=== PATIENT | male | born 1970 | race Two or more races ===

== ENCOUNTER 2020-05-28 16:44 | Inpatient (IN) | payer MEDICAID, OTHER ==
[~2020-05-28] VITALS: Ht 160 cm; Wt 73.5 kg
[2020-05-28] MEDS ORDERED: cefTRIAXone 1GM/50ML D5W 50 ML IV ONE (18:15)
[2020-05-28] MEDS ORDERED: metroNIDAZOLE 500MG/100ML 100 ML IV ONE (18:15)
[2020-05-28] MEDS ORDERED: cefTRIAXone SOD 1,000 MG VL ONE (18:37)
[2020-05-28 18:38] LABS: Basophils # (auto) 0 10 ^3/uL (0-0.2); Basophils % (auto) 0.2 % (0.0-2.0); Eosinophils # (auto) 0 10 ^3/uL (0-0.8); Eosinophils % (auto) 0.1 % (0.0-7.0); Hematocrit 48.8 % (41.0-53.0); Hemoglobin 16.3 g/dL (13.5-17.5); Lymphocytes # (auto) 0.6 10 ^3/uL (0.4-5.4); Lymphocytes % (auto) 6.6 % (10.0-50.0); Mean Corpuscular Hemoglobin 30.3 pg (28.0-32.0); Mean Corpuscular Hgb Conc. 33.4 g/dL (32.0-36.0); Mean Corpuscular Volume 90.7 fL (80.0-100.0); Monocytes # (auto) 0.5 10 ^3/uL (0-1.3); Monocytes % (auto) 5.5 % (0.0-12.0); Neutrophils # (auto) 7.7 10 ^3/uL (1.6-8.6); Neutrophils % (auto) 87.6 % (37.0-80.0); Platelet Count (auto) 204 10^3/uL (140-450); Red Blood Cells 5.38 10^6/uL (4.5-5.90); Red Cell Distribution Width 13.6 % (11.8-14.3); White Blood Cell 8.7 10^3/uL (4.4-10.8)
[2020-05-28] MEDS ORDERED: MORPHINE SULF INJ 2 MG/ML SYRINGE 1ML IV ONE (18:45)
[2020-05-28] MEDS ORDERED: ONDANSETRON HCL 4 MG/2 ML VIAL IV ONE (18:45)
[2020-05-28] MEDS ORDERED: SODIUM CHLORIDE 0.9% 1,000 ML IV ONE (18:45)
[2020-05-28 18:59] LABS: Albumin 3.6 g/dL (3.4-5.0); BUN/Creatinine Ratio 17.8; Calcium 8.6 mg/dL (8.5-10.1); Potassium 3.4 mmol/L (3.5-5.1)
[2020-05-28] MEDS ORDERED: ACETAMINOPHEN 650 mg PER 20 mL UD PO ONE (19:00)
[2020-05-28 19:02] LABS: Bilirubin, Total 3.7 mg/dL (0.2-1.0); Total Protein 7.9 g/dL (6.4-8.2)
[2020-05-28 20:32] LABS: INR 1.17 (0.9-1.15); Partial Thromboplastin Time 26.5 sec (23.0-31.2)
[2020-05-28] MEDS ORDERED: DOCUSATE SOD 100 MG CAP PO PRN (21:45)
[2020-05-28] MEDS ORDERED: TEMAZEPAM 15 MG CAP PO PRN (21:45)
[2020-05-28] MEDS ORDERED: MORPHINE SULF INJ 2 MG/ML SYRINGE 1ML IV PRN (21:45)
[2020-05-28] MEDS ORDERED: LORazepam 0.5 MG TAB PO PRN (21:45)
[2020-05-29] MEDS: metroNIDAZOLE 500MG/100ML 100 ML IV SCH ×4 (00:21→21:32)
[2020-05-29] MEDS: D5W/SOD CHL 0.45% 1,000 ML IV SCH ×2 (00:21→14:11)
[2020-05-29 02:42] VITALS: BP 128/75
[2020-05-29 03:33] LABS: Urine Bacteria NONE SEEN /hpf (None Seen); Urine Blood TRACE /uL (Negative); Urine Mucus FEW (None Seen); Urine Specific Gravity 1.025 (1.001-1.035); Urine WBC 1 /hpf (0 - 3)
[2020-05-29] MEDS: ACETAMINOPHEN 325 MG TAB PO PRN ×2 (04:01→21:33)
[2020-05-29 05:56] VITALS: BP 118/80
[2020-05-29] MEDS ORDERED: ACET-1156 PO (05:59)
[2020-05-29 07:58] LABS: Basophils # (auto) 0 10 ^3/uL (0-0.2); Eosinophils # (auto) 0 10 ^3/uL (0-0.8); Hematocrit 44.3 % (41.0-53.0); Hemoglobin 14.8 g/dL (13.5-17.5); Lymphocytes # (auto) 0.7 10 ^3/uL (0.4-5.4); Lymphocytes % (auto) 7.2 % (10.0-50.0); Mean Corpuscular Hemoglobin 30.5 pg (28.0-32.0); Mean Corpuscular Hgb Conc. 33.5 g/dL (32.0-36.0); Mean Corpuscular Volume 90.9 fL (80.0-100.0); Monocytes # (auto) 0.6 10 ^3/uL (0-1.3); Monocytes % (auto) 6.2 % (0.0-12.0); Neutrophils # (auto) 8.2 10 ^3/uL (1.6-8.6); Neutrophils % (auto) 86.6 % (37.0-80.0); Nucleated Red Blood Cells % 0.1 %; Platelet Count (auto) 189 10^3/uL (140-450); Red Blood Cells 4.87 10^6/uL (4.5-5.90); Red Cell Distribution Width 13.7 % (11.8-14.3); White Blood Cell 9.5 10^3/uL (4.4-10.8)
[2020-05-29] MEDS ORDERED: ceFAZolin 1GM/50ML 50 ML IV ONE (07:58)
[2020-05-29 08:25] LABS: Potassium 3.4 mmol/L (3.5-5.1)
[2020-05-29 08:30] LABS: BUN/Creatinine Ratio 22.7; Calcium 7.7 mg/dL (8.5-10.1)
[2020-05-29] MEDS ORDERED: POVIDONE IODINE 10 % TOPICAL OINT 30GM TOP ONE (09:13)
[2020-05-29] MEDS ORDERED: SUCCINYLCHOLINE CHLORIDE 20 MG/ML 10ML VIAL IV ONE (09:23)
[2020-05-29] MEDS ORDERED: MIDAZOLAM HCL 1MG/1ML-2 ML VIAL ONE (09:25)
[2020-05-29] MEDS ORDERED: ROCURONIUM 10MG/ML 10ML VIAL IV ONE (09:25)
[2020-05-29] MEDS ORDERED: fentaNYL CITRATE 100 MCG/2 ML VL ONE (09:25)
[2020-05-29 09:29] VITALS: BP 117/81
[2020-05-29] MEDS: cefTRIAXone 1GM/50ML D5W 50 ML IV SCH (10:00)
[2020-05-29] MEDS ORDERED: PROPOFOL 10 MG/ML 20 ML IV ONE (10:03)
[2020-05-29] MEDS ORDERED: D5W/SOD CHL 0.45%/KCL 20MEQ 1,000 ML IV ONE (10:30)
[2020-05-29] MEDS ORDERED: ONDANSETRON HCL 4 MG/2 ML VIAL IV PRN (10:45)
[2020-05-29] MEDS ORDERED: ePHEDrine SULFATE 50 MG/ML AMP IV PRN (10:45)
[2020-05-29] MEDS ORDERED: hydrALAZINE HCL 20 MG/ML VL IV PRN (10:45)
[2020-05-29] MEDS ORDERED: MORPHINE SULF INJ 2 MG/ML SYRINGE 1ML ONE (11:00)
[2020-05-29] MEDS: MORPHINE SULF INJ 2 MG/ML SYRINGE 1ML IV PRN ×2 (11:01→11:15)
[2020-05-29] MEDS: HYDROmorphone HCL 2 MG/ML VL IV PRN ×3 (13:24→21:53)
[2020-05-29 16:50] VITALS: BP 135/95
[2020-05-29 22:00] VITALS: BP 137/90
[2020-05-30 05:59] LABS: Basophils # (auto) 0 10 ^3/uL (0-0.2); Eosinophils # (auto) 0 10 ^3/uL (0-0.8); Hematocrit 46.1 % (41.0-53.0); Hemoglobin 15.6 g/dL (13.5-17.5); Lymphocytes # (auto) 0.7 10 ^3/uL (0.4-5.4); Lymphocytes % (auto) 10.4 % (10.0-50.0); Mean Corpuscular Hemoglobin 30.6 pg (28.0-32.0); Mean Corpuscular Hgb Conc. 33.8 g/dL (32.0-36.0); Mean Corpuscular Volume 90.7 fL (80.0-100.0); Monocytes # (auto) 0.5 10 ^3/uL (0-1.3); Neutrophils # (auto) 5.4 10 ^3/uL (1.6-8.6); Neutrophils % (auto) 82.6 % (37.0-80.0); Nucleated Red Blood Cells % 0.1 %; Platelet Count (auto) 191 10^3/uL (140-450); Red Blood Cells 5.08 10^6/uL (4.5-5.90); Red Cell Distribution Width 13.6 % (11.8-14.3); White Blood Cell 6.6 10^3/uL (4.4-10.8)
[2020-05-30] MEDS: metroNIDAZOLE 500MG/100ML 100 ML IV SCH (06:25)
[2020-05-30] MEDS: D5W/SOD CHL 0.45% 1,000 ML IV SCH (06:26)
[2020-05-30] MEDS: HYDROmorphone HCL 2 MG/ML VL IV PRN ×4 (06:26→21:08)
[2020-05-30 06:28] LABS: Potassium 3.6 mmol/L (3.5-5.1)
[2020-05-30 06:53] LABS: Albumin 2.3 g/dL (3.4-5.0); BUN/Creatinine Ratio 15.4; Bilirubin, Total 3.9 mg/dL (0.2-1.0); Calcium 7.9 mg/dL (8.5-10.1); Total Protein 6.4 g/dL (6.4-8.2)
[2020-05-30 09:21] VITALS: BP 125/96
[2020-05-30] MEDS: cefTRIAXone 1GM/50ML D5W 50 ML IV SCH ×2 (11:25→21:08)
[2020-05-30 13:27] VITALS: BP 141/83
[2020-05-30] MEDS: metroNIDAZOLE 500 MG TAB PO SCH ×2 (14:15→21:59)
[2020-05-30 17:00] VITALS: BP 135/97
[2020-05-30] MEDS: ACETAMINOPHEN 325 MG TAB PO PRN (18:18)
[2020-05-30 22:00] VITALS: BP 142/88
[2020-05-31] MEDS: HYDROmorphone HCL 2 MG/ML VL IV PRN ×3 (01:19→09:45)
[2020-05-31] MEDS: ONDANSETRON HCL 4 MG/2 ML VIAL IV PRN ×5 (01:19→21:09)
[2020-05-31 05:00] VITALS: BP 144/98
[2020-05-31] MEDS: metroNIDAZOLE 500 MG TAB PO SCH ×3 (05:30→22:56)
[2020-05-31 06:42] LABS: Basophils # (auto) 0 10 ^3/uL (0-0.2); Basophils % (auto) 0.1 % (0.0-2.0); Eosinophils # (auto) 0 10 ^3/uL (0-0.8); Hematocrit 48.9 % (41.0-53.0); Hemoglobin 16.4 g/dL (13.5-17.5); Lymphocytes # (auto) 0.3 10 ^3/uL (0.4-5.4); Lymphocytes % (auto) 3.2 % (10.0-50.0); Mean Corpuscular Hemoglobin 30.6 pg (28.0-32.0); Mean Corpuscular Hgb Conc. 33.6 g/dL (32.0-36.0); Mean Corpuscular Volume 91.2 fL (80.0-100.0); Monocytes # (auto) 0.6 10 ^3/uL (0-1.3); Monocytes % (auto) 5.4 % (0.0-12.0); Neutrophils # (auto) 9.8 10 ^3/uL (1.6-8.6); Neutrophils % (auto) 91.3 % (37.0-80.0); Platelet Count (auto) 240 10^3/uL (140-450); Red Blood Cells 5.37 10^6/uL (4.5-5.90); Red Cell Distribution Width 13.7 % (11.8-14.3); White Blood Cell 10.7 10^3/uL (4.4-10.8)
[2020-05-31 07:04] LABS: Potassium 3.4 mmol/L (3.5-5.1)
[2020-05-31 07:14] LABS: Albumin 2.4 g/dL (3.4-5.0); BUN/Creatinine Ratio 25.7; Bilirubin, Total 4.7 mg/dL (0.2-1.0); Calcium 8.2 mg/dL (8.5-10.1); Total Protein 6.9 g/dL (6.4-8.2)
[2020-05-31 09:01] VITALS: BP 128/90
[2020-05-31] MEDS: cefTRIAXone 1GM/50ML D5W 50 ML IV SCH ×2 (09:44→22:55)
[2020-05-31 10:09] LABS: Hepatitis B Surface Antibody Negative
[2020-05-31 10:36] LABS: Hepatitis A Total Antibody Positive
[2020-05-31 12:23] VITALS: BP 130/90
[2020-05-31 12:35] LABS: Hepatitis A Ab IgM Negative; Hepatitis B Core IgM Negative
[2020-05-31 12:36] LABS: Hepatitis B Core Total AB Negative
[2020-05-31 12:37] LABS: Hepatitis B Surface Antigen Negative (Negative); Hepatitis C Antibody Negative (Negative)
[2020-05-31] MEDS: HYDROcodone-ACET 5/325MG TAB PO PRN ×2 (14:01→18:11)
[2020-05-31 17:09] VITALS: BP 146/104
[2020-05-31] MEDS ORDERED: POTASSIUM EFFERVESENT TAB 25 MEQ PO ONE (17:30)
[2020-05-31] MEDS: PANTOPRAZOLE 40 MG TAB PO SCH (18:01)
[2020-05-31] MEDS: amLODIPine BESYLATE 5 MG TAB PO SCH (18:02)
[2020-05-31 22:00] VITALS: BP 143/97
[2020-06-01 05:00] VITALS: BP 136/88
[2020-06-01] MEDS: metroNIDAZOLE 500 MG TAB PO SCH ×3 (05:23→22:00)
[2020-06-01 08:06] LABS: Basophils # (auto) 0 10 ^3/uL (0-0.2); Basophils % (auto) 0.2 % (0.0-2.0); Eosinophils # (auto) 0 10 ^3/uL (0-0.8); Eosinophils % (auto) 0.1 % (0.0-7.0); Hematocrit 39.7 % (41.0-53.0); Hemoglobin 13.4 g/dL (13.5-17.5); Lymphocytes # (auto) 0.7 10 ^3/uL (0.4-5.4); Lymphocytes % (auto) 8.3 % (10.0-50.0); Mean Corpuscular Hemoglobin 30.4 pg (28.0-32.0); Mean Corpuscular Hgb Conc. 33.7 g/dL (32.0-36.0); Mean Corpuscular Volume 90.1 fL (80.0-100.0); Monocytes # (auto) 0.6 10 ^3/uL (0-1.3); Monocytes % (auto) 7.1 % (0.0-12.0); Neutrophils # (auto) 7.3 10 ^3/uL (1.6-8.6); Neutrophils % (auto) 84.3 % (37.0-80.0); Platelet Count (auto) 239 10^3/uL (140-450); Red Blood Cells 4.41 10^6/uL (4.5-5.90); Red Cell Distribution Width 13.9 % (11.8-14.3); White Blood Cell 8.7 10^3/uL (4.4-10.8)
[2020-06-01 08:26] LABS: Albumin 2.1 g/dL (3.4-5.0); Calcium 7.7 mg/dL (8.5-10.1); Potassium 3.6 mmol/L (3.5-5.1)
[2020-06-01 08:29] LABS: BUN/Creatinine Ratio 19.7
[2020-06-01 08:32] LABS: Bilirubin, Total 2.6 mg/dL (0.2-1.0)
[2020-06-01 09:00] VITALS: BP 134/94
[2020-06-01] MEDS: cefTRIAXone 1GM/50ML D5W 50 ML IV SCH (10:00)
[2020-06-01] MEDS: PANTOPRAZOLE 40 MG TAB PO SCH (10:00)
[2020-06-01] MEDS: amLODIPine BESYLATE 5 MG TAB PO SCH (10:00)
[2020-06-01 13:00] VITALS: BP 140/93
[2020-06-01] MEDS ORDERED: GASTROGRAFIN 120 ML SOL ONE (13:47)
[2020-06-01] MEDS: ONDANSETRON HCL 4 MG/2 ML VIAL IV PRN ×2 (14:01→21:13)
[2020-06-01 17:00] VITALS: BP 130/90
[2020-06-01 22:00] VITALS: BP 144/98
[2020-06-02] MEDS: metroNIDAZOLE 500 MG TAB PO SCH ×3 (02:38→22:00)
[2020-06-02 05:00] VITALS: BP 137/95
[2020-06-02] MEDS ORDERED: metroNIDAZOLE 500MG/100ML 100 ML IV ONE (06:00)
[2020-06-02 09:00] VITALS: BP 136/87
[2020-06-02] MEDS ORDERED: ACETAMINOPHEN 500 MG TAB PO PRN (09:00)
[2020-06-02] MEDS: ONDANSETRON HCL 4 MG/2 ML VIAL IV PRN (09:17)
[2020-06-02] MEDS ORDERED: KETOROLAC TROMETH 30 MG/ML 1ML VIAL IV ONE (09:30)
[2020-06-02] MEDS: PANTOPRAZOLE 40 MG TAB PO SCH (10:00)
[2020-06-02] MEDS: amLODIPine BESYLATE 5 MG TAB PO SCH (10:00)
[2020-06-02] MEDS: cefTRIAXone 1GM/50ML D5W 50 ML IV SCH ×2 (11:35→22:00)
[2020-06-02 12:53] VITALS: BP 124/84
[2020-06-02] MEDS: D5W/SOD CHL 0.45% 1,000 ML IV SCH (13:00)
[2020-06-02] MEDS ORDERED: METOCLOPRAMIDE HCL 5MG/ml INJ 2ml VIAL IV SCH (14:00)
[2020-06-02] MEDS: PANTOPRAZOLE 40 MG/10 ML VIAL INJ IV SCH (16:35)
[2020-06-02 17:01] VITALS: BP 135/90
[2020-06-02 22:00] VITALS: BP 136/94
[2020-06-03] MEDS: metroNIDAZOLE 500 MG TAB PO SCH ×3 (03:22→21:42)
[2020-06-03 06:00] VITALS: BP 129/87
[2020-06-03] MEDS: D5W/SOD CHL 0.45% 1,000 ML IV SCH ×2 (06:08→15:53)
[2020-06-03 09:00] VITALS: BP 127/77
[2020-06-03] MEDS: amLODIPine BESYLATE 5 MG TAB PO SCH (10:00)
[2020-06-03] MEDS: PANTOPRAZOLE 40 MG/10 ML VIAL INJ IV SCH ×2 (10:27→21:43)
[2020-06-03] MEDS: cefTRIAXone 1GM/50ML D5W 50 ML IV SCH ×2 (10:31→21:42)
[2020-06-03 13:00] VITALS: BP 134/92
[2020-06-03 16:45] VITALS: BP 136/68
[2020-06-03 22:00] VITALS: BP 121/87
[2020-06-04 05:00] VITALS: BP 116/81
[2020-06-04] MEDS: metroNIDAZOLE 500 MG TAB PO SCH ×2 (05:12→14:00)
[2020-06-04] MEDS: D5W/SOD CHL 0.45% 1,000 ML IV SCH (05:12)
[2020-06-04 08:28] LABS: Urine Bacteria NONE SEEN /hpf (None Seen); Urine Blood Negative /uL (Negative); Urine Specific Gravity 1.009 (1.001-1.035); Urine WBC 6 /hpf (0 - 3)
[2020-06-04 09:00] VITALS: BP 114/74
[2020-06-04] MEDS: amLODIPine BESYLATE 5 MG TAB PO SCH (09:11)
[2020-06-04] MEDS: cefTRIAXone 1GM/50ML D5W 50 ML IV SCH (09:12)
[2020-06-04] MEDS: PANTOPRAZOLE 40 MG/10 ML VIAL INJ IV SCH (09:12)
[2020-06-04] MEDS ORDERED: METR500T PO (11:56)
[2020-06-04] MEDS ORDERED: ONDA-144 PO (11:56)
[2020-06-04] MEDS ORDERED: LEVO-28 PO (11:56)
[2020-06-04 14:24] VITALS: BP 114/74
== END 2020-06-04 15:40 | disposition home or self-care (01) | DRG 710 ==
LOC: ER 16:44 → WEST WING 16:45
PROVIDERS: ADMIT Hospitalist; ATTEND Internal Medicine
PROC: 0WJG4ZZ Inspection of Peritoneal Cavity, Percutaneous Endoscopic Approach (ICD-10-PCS; 2020-05-29)
PROC: 0DTJ0ZZ Resection of Appendix, Open Approach (ICD-10-PCS; principal; 2020-05-29 09:27)
PROC: 0D9670Z Drainage of Stomach with Drainage Device, Via Natural or Artificial Opening (ICD-10-PCS; 2020-06-01)
DX: A41.9 Sepsis, unspecified organism (principal); K35.32 Acute appendicitis with perforation, localized peritonitis, and gangrene, without abscess; E66.9 Obesity, unspecified; R74.0 Nonspecific elevation of levels of transaminase and lactic acid dehydrogenase [LDH]; R30.0 Dysuria; K56.7 Ileus, unspecified; K56.600 Partial intestinal obstruction, unspecified as to cause; I10 Essential (primary) hypertension; Z53.31 Laparoscopic surgical procedure converted to open procedure; Z79.899 Other long term (current) drug therapy; Z83.3 Family history of diabetes mellitus; Z68.28 Body mass index [BMI] 28.0-28.9, adult
CPT/HCPCS: 36415; 71045; 74018; 74176; 74250; 76705; 80048; 80053; 80061; 80074; 81001; 82728; 85025; 85610; 85730; 86704; 86706; 86708; 86803; 86850; 86900; 86901; 87340; C9113; G0378; J0330; J0690; J0696; J1885; J2250; J2405; J2704; J3490